=== PATIENT | female | born 1995 | race Two or more races ===

== ENCOUNTER 2017-07-24 16:35 | Emergency (ER) | payer OTHER ==
[~2017-07-24] VITALS: Ht 167.6 cm; Wt 61.0 kg
[2017-07-24 17:59] VITALS: BP_DIAS 69
== END 2017-07-24 18:43 | disposition home or self-care (01) ==
LOC: ER 16:35 → EEVIPCON 16:35 → ER 18:43
DX: T74.21XA Adult sexual abuse, confirmed, initial encounter (principal)
CPT/HCPCS: 99284